=== PATIENT | male | born 1985 | race Caucasian/White ===

== ENCOUNTER 2024-08-21 20:46 | Inpatient (IN) | payer OTHER, SELFPAY ==
[2024-08-21 17:21] VITALS: BP 139/96
--- NOTE | 2024-08-21 18:27 | ED.GENMED ---
History of Present Illness
General
Chief Complaint: Alcohol Problem
Source: patient and family (Mother and father)
Exam Limitations: none
Time Seen by Provider: 08/21/24 17:32
Nursing documentation reviewed up to this point in time: agreed with
History of Present Illness
History of Present Illness:
39-year-old male with past medical history of alcohol abuse presents to the ER seeking alcohol detox/treatment. Patient says that he has been heavily drinking for the past 4 years. He says that his drinking has become heavier over the past week
due to the unfortunate passing of his . He says that her is in 2 days and he is seeking to detox from alcohol so that he can be sober for the . He reports that he drinks about a handle of liquor a day. He said he had about 1/5
of liquor today and his last drink was few hours ago. He says that he is having headaches, nausea with occasional vomiting. He is having myalgias. He says he feels very fatigued and washed out. He says he had success with rehab about a year and
a half ago but unfortunately relapsed; he denies any history of DTs although he does believe he may have had a seizure once in the past from alcohol withdrawal. He denies any drug use.
Review of Systems
Review of Systems
All Other Systems: ROS reviewed and negative except as documented in HPI and ROS
Constitutional: Reports fatigue; Denies fever
Respiratory: Denies trouble breathing
Cardiac: Denies chest pain
ABD/GI: Reports nausea and vomiting; Denies abdominal pain
: Denies flank pain
Musculoskeletal: Reports muscle pain; Denies neck pain or back pain
Neurological: Reports headache; Denies dizzy
Psychiatric: Reports depression; Denies suicidal
Phy Exam
Physical Exam
Physical Exam:
General: Awake, alert, oriented x3; tearful/anxious but in no acute distress
Head: Normocephalic, atraumatic
Eyes: Conjunctiva normal, sclera anicteric, pupils equal round reactive to light bilaterally
Throat: Airway intact, handling secretions
Neck: Trachea midline, supple without meningismus
Lungs: Clear to auscultation bilaterally, no wheezing, rales, rhonchi
Heart: Tachycardia with regular rhythm, no murmurs, gallops, or rubs
Abd: Soft, non distended, nontender
Neuro: No gross deficits, mild tremor
Skin: Warm and dry, no piloerection, no rash
Extremities: No edema in extremities, equal pulses in all extremities
Scores
Heart Failure Risk
Heart Failure Risk Score: Not Applicable
Heart Score for Chest Pain Patients
STEMI patient?: Not applicable
Withdrawal Assessment of Alcohol
Withdrawal Assessment Completed?: Yes
Nausea and Vomiting: Mild nausea with no vomiting
Tactile Disturbances: None
Tremor: Not visible, but can be felt fingertip to fingertip
Auditory Disturbances: Not present
Paroxysmal Sweats: No sweat visible
Visual Disturbances: Not present
Anxiety: Moderately anxious, or guarded, so anxiety is inferred
Headache, Fullness in Head: Mild
Agitation: Moderately fidgety and restless
Orientation and clouding of sensorium: Oriented and can do serial additions
Total CIWA Score: 12
Alcohol Withdrawal Medication Recommendation: Equal to MSAS Score 5-7. Lorazepam 1mg IV or PO NOW & re-assess q2hrs
Course
Orders/Labs/Results
Orders:
Orders
08/21/24 17:24
EKG [Electrocardiogram (*1)] Urgent
Reason for Study: Tachycardia
EKG- Treatment ONCE
08/21/24 18:24
0.9% Sodium Chloride 1000 ml [Nss] 1,000 ml IV BOLUS
Ketorolac [Toradol] 15 mg IV NOW STA
Lorazepam [Ativan] 0.5 mg IV NOW STA
Ondansetron Injectable [Zofran] 4 mg IV NOW STA
Thiamine Injection 100 mg IV NOW STA
08/21/24 18:42
Acetaminophen Urgent
Alcohol Urgent
CPK [Creatine Phosphokinase] Urgent
Complete Blood Count/With Diff Urgent
Comprehensive Metabolic Panel Urgent
Lipase Urgent
Salicylate Urgent
08/21/24 19:00
FOLic ACID [Folvite] 1 mg 0.9% Sodium Chloride 50 ml [Nss] 50 ml IV ONCE
08/21/24 19:04
Drug Screen, Urine [Urine Drug Abuse Screen] Urgent
Date Specimen was Collected: 08/21/24
Time Specimen was Collected: 18:53
Abnormal Lab Results
08/21/24
18:42
WBC 3.8 L 10^3/uL
(4.8-10.8)
RBC 4.68 L 10^6/uL
(4.70-6.10)
MCH 32.9 H pg
(27.0-31.0)
Plt Count 92 L 10^3/uL
(130-400)
Absolute Lymphs (auto) 0.6 L 10^3/uL
(1.2-3.4)
Lymphocytes % 16.5 L %
(20.5-51.1)
Creatinine 0.6 L mg/dL
(0.7-1.3)
Glucose 142 H mg/dl
(70-99)
AST 790 H* U/L
(17-59)
ALT 434 H U/L
(0-50)
Lipase 565 H U/L
(23-300)
Salicylates < 1.0 L mg/dl
(2.0-20.0)
Acetaminophen < 10 L ug/ml
(10-30)
08/21/24 18:42
08/21/24 18:42
Vital Signs
Initial and Last Documented VS:
Initial Vital Signs
Temp Pulse Resp BP Pulse Ox
36.6 C 130 17 139/96 96
08/21/24 17:21 08/21/24 17:21 08/21/24 17:21 08/21/24 17:21 08/21/24 17:21
Last Documented Vital Signs
Temp Pulse Resp BP Pulse Ox
36.6 C 112 10 123/83 93
08/21/24 17:21 08/21/24 19:15 08/21/24 19:11 08/21/24 18:31 08/21/24 18:33
MDM/Problems Addressed
Differential Diagnosis Includes:
Alcohol withdrawal
MDM/Problems Addressed:
39-year-old male who presents to the emergency room seeking alcohol treatment as described above. He is starting to have some early withdrawal symptoms he says. Last drink was a few hours ago. He is tachycardic, mildly hypertensive. Physical
exam as above. Will plan to place an IV send basic screening labs and drug screen. Will provide fluids, thiamine/folate, Zofran, Toradol for myalgias. Will treat with Ativan. Will discuss with our [facility] team for assessment.
[facility] performed assessment, patient is willing to do rehab but does not want to go directly rehab from the ER today because of his 's on Thursday which he needs to attend.
Labs reviewed�CBC shows thrombocytopenia likely from chronic alcohol use. CMP shows transaminitis with AST greater than ALT consistent with alcohol use. Lipase marginal 565. Tylenol and salicylate levels negative. His alcohol level was 341. UDS
negative. Patient feeling better after medications as above. Given that he was already showing signs of alcohol withdrawal with level of 341 and that he plans to try and go sober to his 's on Thursday I do think he should be admitted
for continued monitoring of alcohol withdrawal. He is comfortable with this plan. Case discussed with hospitalist.
Chronic conditions affecting care:
Alcohol use
Acute Exacerbation and/or Progression of Chronic Illness:
Acutely hypertensive likely related to alcohol withdrawal�will treat withdrawal
Acute Exacerbation and/or Progression of Chronic Illness: HTN
*Pulse Oximetry
Patient hypoxic: no
*EKG
Interpreted by ED Provider?: Yes
Heart Rate: 121
Rate: tachycardiac
Rhythm: sinus tachycardia
[place]: left axis deviation
Interval: normal interval
QRS Pattern: left vent hypertrophy
Ischemia: no ischemia
*Critical Care Note
Total Time (30-74mins, 75-104mins- exclusive of procedures): Not Applicable
Data Reviewed
Source: patient and family (Parents)
Patient Management
Discussion with other providers: Hospitalist (Discussed with hospitalist) and Other (Discussed with [facility])
Escalation/DeEscalation of care consider admission/obs:
Admission indicated
ED Attending Note
-
Portions of this chart may have been created with voice recognition software.� Occasional wrong word or��sound alike� substitutions may have occurred due to the inherent limitations of voice recognition software.
Discharge Plan
Departure
Patient Disposition: Admit
Date of Disposition: 08/21/24
Time of Disposition: 19:47
Admit to doctor: Josh
Presentation/result/management discussed w/ accepting MD/DO: Hospitalist
Discharge Problem:
Alcohol withdrawal
Prescriptions:
No Action
No Current Medications
0
Referrals:
Damon Aly DO [Family Provider, Family Practice]
Interventions
Interventions:
*Risk Screen - Suicide Last Done: 08/21/24 17:23
*General Assessment Last Done: 08/21/24 17:23
*Neglect/Abuse Screening Last Done: 08/21/24 17:23
*ED- Fall Risk Assessment Last Done: 08/21/24 19:41
*ED COVID-19 Vaccine History Last Done: 08/21/24 17:23
ED- Neurological Assessment Last Done: 08/21/24 19:44
ED-Psychological Assessment Last Done: 08/21/24 18:33
Discharge Date and Time
Print Language: LATVIAN
[2024-08-21 18:28] VITALS: BMI 29.9
[2024-08-21 18:31] VITALS: BP 123/83
[2024-08-21] MEDS: NSS 1000 IV ×2 (18:40→22:26)
[2024-08-21] MEDS: THIAMINE INJECTION 100 MG IV (18:54)
[2024-08-21] MEDS: ZOFRAN 4 MG IV (18:54)
[2024-08-21] MEDS: ATIVAN 0.5 MG IV ×2 (18:54→20:50)
[2024-08-21] MEDS: TORADOL 15 MG IV (18:55)
[2024-08-21 19:00] LABS: % Basophils 1.1 % (0-2); % Eosinophils 1.1 % (0-6); % Immature Granulocytes 0.3 % (0-0.5); % Lymphocytes 16.5 % (20.5-51.1); % Monocytes 9.3 % (1.7-9.3); % Neutrophils 71.7 % (42.2-75.2); Absolute Lymphocytes 0.6 10^3/uL (1.2-3.4); Absolute Monocytes 0.4 10^3/uL (0.1-0.6); Absolute Neutrophils 2.7 10^3/uL (1.4-6.5); Hematocrit 43.1 % (39.0-52.0); Hemoglobin 15.4 g/dL (13.0-18.0); Mean Corp Hgb Conc. 35.7 g/dL (33.0-37.0); Mean Corpuscular Hgb 32.9 pg (27.0-31.0); Mean Corpuscular Volume 92.1 fL (80.0-94.0); Nucleated Red Blood Cells % 0 % (-); Red Blood Cell Count 4.68 10^6/uL (4.70-6.10); Red Cell Dist. Width 13.2 % (11.5-14.5); White Blood Cell Count 3.8 10^3/uL (4.8-10.8)
[2024-08-21 19:28] LABS: Mean Platelet Volume 8.9 fL (7.4-10.4); Platelet Count 92 10^3/uL (130-400)
[2024-08-21 19:29] LABS: Amphetamines Negative (Negative); Barbiturates Negative (Negative); Benzodiazepines Negative (Negative); Buprenorphine Negative (Negative); Cocaine Negative (Negative); Marijuana Negative (Negative); Methadone Negative (Negative); Methamphetamines Negative (Negative); Opiates Negative (Negative); Phencyclidine Negative (Negative); Tricyclic Antidepressants Negative (Negative)
[2024-08-21] MEDS: FOLVITE 50.2 MG IV (19:34)
[2024-08-21 19:35] LABS: ALT (SGPT) 434 U/L (0-50); AST (SGOT) 790 U/L (17-59); Acetaminophen < 10 ug/ml (10-30); Albumin 4.9 g/dl (3.5-5.0); Alcohol 341 mg/dl; Alkaline Phosphatase 64 U/L (38-126); Blood Urea Nitrogen 12 mg/dl (9-20); Calcium 8.7 mg/dl (8.4-10.2); Carbon Dioxide 27 mmol/L (22-30); Chloride 105 mmol/L (98-107); Creatine Phosphokinase 79 U/L (55-170); Estimated Creatinine Clearance > 125 ml/min; Glucose 142 mg/dl (70-99); Lipase 565 U/L (23-300); Potassium 3.9 mmol/L (3.5-5.1); Salicylate < 1.0 mg/dl (2.0-20.0); Sodium 141 mmol/L (135-145); Total Bilirubin 0.8 mg/dl (0.2-1.3); Total Protein 7.4 g/dl (6.3-8.2); eGFR > 60.00
--- NOTE | 2024-08-21 20:15 | HPS.HSE ---
Family Physician
-
Family Physician: Damon Aly
Chief Complaint
-
alcohol withdrawal
History of Present Illness
39-year-old male past medical history of alcohol use disorder, prior alcohol-related seizure presenting to seek alcohol detoxification. He has been drinking heavily for the past 4 years. He has been drinking even more over the past week due to the
unfortunate passing of his . is in 2 days and he is seeking to detox from alcohol so that he can be sober for the . He drinks a handle of liquor a day. He had 1/5 today and his last drink was a few hours ago. He is having
headaches, nausea with occasional vomiting. He is having muscle cramping. He feels fatigued. He had successful with rehab a year and a half ago but unfortunately relapsed. He denies delirium tremens although he does believe he may have had a
seizure once in the past from alcohol withdrawal. He denies any other drugs.
He has some pain in his lower back, chills, nausea and vomiting over the past few days. Denies chest pain or shortness of breath. Denies abdominal pain.
Medical History
Past Medical History
Past Medical History: Reports Other ( alcohol use disorder, prior alcohol-related seizure)
Past Surgical History: Reports Other (Appendectomy, wisdom teeth surgery)
Social History
Tobacco: Non-smoker
Alcohol: Daily
Drug: None
Family History
Family History: Not pertinent
Allergies / Home Medications
Allergies reflects when Allergies were last updated in [employer].
Home Medications with original date entered in [employer]
Allergy/Medication List:
Allergies
Allergy/AdvReac Type Severity Reaction Status Date / Time
No Known Allergies Allergy Unverified 08/21/24 17:22
Home Medications
No Meds [No Current Medications] 08/21/24
Review of Systems
-
History Source: Patient
A 12 point ROS was completed and negative except as noted: Yes
Constitutional: Reports No Symptoms
EENT: Reports No Symptoms
Respiratory: Reports No Symptoms
Cardiac: Reports No Symptoms
Abdomen/GI: Reports No Symptoms
: Reports No Symptoms
Musculoskeletal: Reports No Symptoms
Skin: Reports No Symptoms
Neurological: Reports No Symptoms
Endocrine: Reports No Symptoms
Hematologic/Lymphatic: Reports No Symptoms
Psych: Reports No Symptoms
Physical Exam
Vital Signs
Vital Signs
Temp Pulse Resp BP Pulse Ox
97.9 F 112 10 123/83 93
08/21/24 17:21 08/21/24 19:15 08/21/24 19:11 08/21/24 18:31 08/21/24 18:33
Physical Exam
General: Well Developed, Well Nourished and No Apparent Distress
HEENT: NormoCephalic, Moist mucous membranes and Atraumatic
Respiratory: Clear
Cardiac: S1/S2 and Regular Rhythm; No Murmur or Rub
GI: Soft, Non Tender, Non Distended and Normal Bowel Sounds; No Organomegaly
Rectal: Deferred by Provider
Musculoskeletal: No Clubbing, No Cyanosis and No Edema
Skin: No Rash
Neuro: Nonfocal/grossly intact
Laboratory Results
-
08/21/24 18:42
08/21/24 18:42
Laboratory Results
Total Bilirubin 0.8 mg/dl (0.2-1.3) 08/21/24 18:42
AST 790 U/L (17-59) H* 08/21/24 18:42
ALT 434 U/L (0-50) H 08/21/24 18:42
Alkaline Phosphatase 64 U/L (38-126) 08/21/24 18:42
Lipase 565 U/L (23-300) H 08/21/24 18:42
Data Reviewed
-
Lab Data: Labs Reviewed by me
Old Records: Reviewed
Impression/Plan
-
IMPRESSION:
PLAN:
# Alcohol withdrawal
# Prior history of alcohol-related seizure
-Alcohol level 341
-UDS, Tylenol and salicylates negative
- Alcohol withdrawal protocol
- Phenobarbital protocol
- Thiamine and folate
- IV fluids
# Transaminitis secondary to alcohol
- Continue to monitor
# Thrombocytopenia/leukopenia secondary to alcohol use
- Continue to monitor
Full code
DVT prophylaxis�heparin
Regular diet
[2024-08-21 20:32] VITALS: BP 126/72
--- NOTE | 2024-08-21 21:00 | EDRN ---
Pt complained of feeling his heart race and veins pounding in his head. Pt said 'I just don't feel well.' HR 110's. Pt medicated with 0.5mg ativan iv as ordered by Dr Mccray. Pt said he is feeling better now.
--- NOTE | 2024-08-21 22:15 | PTCARENOTE ---
Patient arrived from ED via stretcher. Patient aaox3, able to make needs known. IV flushed and patent.
[2024-08-21] MEDS: PHENOBARBITAL 104 MG IV (22:44)
[2024-08-21 23:10] VITALS: BP 132/88
[2024-08-22] MEDS: ATIVAN 1 MG PO ×6 (00:14→13:01)
[2024-08-22 03:08] VITALS: BP 120/85
[2024-08-22 06:00] VITALS: BMI 29.6
[2024-08-22 07:00] VITALS: BP 115/84
[2024-08-22 07:26] LABS: % Basophils 1.2 % (0-2); % Eosinophils 0.8 % (0-6); % Immature Granulocytes 0.4 % (0-0.5); % Lymphocytes 18.4 % (20.5-51.1); % Monocytes 5.9 % (1.7-9.3); % Neutrophils 73.3 % (42.2-75.2); Absolute Lymphocytes 0.5 10^3/uL (1.2-3.4); Absolute Monocytes 0.2 10^3/uL (0.1-0.6); Absolute Neutrophils 1.9 10^3/uL (1.4-6.5); Hematocrit 41.4 % (39.0-52.0); Hemoglobin 14.7 g/dL (13.0-18.0); Mean Corp Hgb Conc. 35.5 g/dL (33.0-37.0); Mean Platelet Volume 9.4 fL (7.4-10.4); Nucleated Red Blood Cells % 0 % (-); Platelet Count 61 10^3/uL (130-400); Red Blood Cell Count 4.45 10^6/uL (4.70-6.10); Red Cell Dist. Width 13.2 % (11.5-14.5); White Blood Cell Count 2.6 10^3/uL (4.8-10.8)
[2024-08-22] MEDS: HEPARIN 5000 UNITS SC (07:57)
[2024-08-22] MEDS: VITAMIN B1 100 MG PO (07:57)
[2024-08-22] MEDS: PHENOBARBITAL 97.5 MG IV (07:59)
[2024-08-22] MEDS: FOLVITE 1 MG PO (07:59)
[2024-08-22 08:26] LABS: ALT (SGPT) 419 U/L (0-50); AST (SGOT) 663 U/L (17-59); Albumin 4.5 g/dl (3.5-5.0); Alkaline Phosphatase 63 U/L (38-126); Blood Urea Nitrogen 10 mg/dl (9-20); Calcium 8.9 mg/dl (8.4-10.2); Carbon Dioxide 30 mmol/L (22-30); Chloride 104 mmol/L (98-107); Estimated Creatinine Clearance > 125 ml/min; Glucose 90 mg/dl (70-99); Potassium 3.7 mmol/L (3.5-5.1); Sodium 138 mmol/L (135-145); Total Bilirubin 1.8 mg/dl (0.2-1.3); Total Protein 6.9 g/dl (6.3-8.2); eGFR > 60.00
[2024-08-22] MEDS: PROTONIX 40 MG PO (10:37)
--- NOTE | 2024-08-22 10:58 | CM ---
Addendum entered by Betty Stoner 08/22/24 12:34:
Spoke w/ Marcus/[facility] who stated colleague, Sangita, met w/ patient in ED. Patient is interested in IP rehab, however, would like to wait until after his 's service. Information was provided for patient to call to initiate IP admission.
[facility] will follow up
Per hospitalist, patient will leave AMA
Original Note:
Patient seen bedside, initial assessment completed. Patient is a 39-year-old male past medical history of alcohol use disorder, prior alcohol-related seizure presenting to seek alcohol detoxification. He has been drinking heavily for the past 4
years. He has been drinking even more over the past week due to the unfortunate passing of his .
Patient resides w/ mother and his 3 children in a 2STH, no steps. Independent in all areas, no DME. No PT hx. Inpatient D&A rehab last year per chart.
Address, point of contact and insurance verified
PCP: Damon Aly
Pharmacy: [facility]
Patient stated his passed recently and her is tomorrow so he will need to be discharged today by 1 pm or he will have to leave AMA.
CM consulted for substance abuse counseling. Discussed w/ patient who stated that [facility] did reach out to him regarding IP or OP treatment, he stated that he is unsure at this time but will revisit this after his 's .
TT hospitalist regarding patient's need to d/c today
Plan: Home, no needs
[2024-08-22 11:00] VITALS: BP 132/80
[2024-08-22 11:38] LABS: Lipase 399 U/L (23-300); Magnesium 1.5 mg/dl (1.6-2.3); Phosphorus 3.3 mg/dl (2.5-4.5)
--- NOTE | 2024-08-22 12:12 | W.PN.HOSP.TC ---
Today's Communication/Plan
-
Replace magnesium
Switch phenobarbital to Librium
Watch for any withdrawal signs
Ultrasound of the abdomen if patient agrees
Assessment / Plan
Assessment / Plan
39-year-old male with history of alcohol use. Drinks a handle of liquor daily. His recently passed and her is tomorrow. Patient wants to leave to make arrangements and to attend that.
Mild tremors
AAO3
Cardiovascular system is most appreciated
Chest clear to auscultation-abdomen soft and nontender
Neuroexam is nonfocal
# Alcohol use disorder
Alcohol withdrawal
Prior seizures from alcohol
Current alcohol level on admission was 341
Discontinue phenobarbital protocol and start Librium. In case patient wants to stop alcohol and continue with outpatient treatment we can give him a tapering dose of Librium .
Supplement thiamine and folic acid
MSAS protocol with Benzos as needed
# Abnormal LFTs
Likely alcohol induced hepatitis-GI evaluation requested
Check ultrasound of the abdomen if pt agrees and hepatitis panel
# Hypomagnesemia-replace
# Leukopenia and thrombocytopenia-secondary to alcohol use-follow
# DVT prophylaxis-subcutaneous heparin
# Full code
Patient stated that he wants to leave AGAINST MEDICAL ADVICE to attend his 's and to make arrangements today. He stated that he is not planning to drink again. We discussed about liver test abnormalities and the need to stay to get
treatment for that. He is aware that this could go into liver failure. Also discussed about alcohol withdrawal symptoms can be even life-threatening. He requested medicines to help him with withdrawal symptoms . I also made him aware that if he
mixes alcohol with the medicines which are prescribed this can be fatal. He verbalized understanding. Patient wants to think and let me know. If he is leaving AGAINST MEDICAL ADVICE and he really wants to quit alcohol use and admits he will not
resume drinking then I will give him a prescription for Librium. He is also talking to a rehab to check in tomorrow after the . He is aware that he can come back to the hospital if he changed his mind and we will take care of him. I tried
my best to convince him to stay to get further work up and treatment.
Discussed with nursing.
Discussed with rn social services who is checking with [facility] to see if they are aware about the referral and communicating with the patient to set up rehab
Part of this note was created using voice recognition system. Occasional wrong word or��sound alike� substitutions may have inadvertently occurred due to the inherent limitations of voice recognition software. If noted kindly bring it to my
attention for correction.
Time more than 50 min
Anticipated Discharge: > 48 hours
Subjective/Interval History
-
Date of Service: August 22, 2024
Objective Data
-
Labs:
Laboratory Results
08/22/24
06:49
WBC 2.6 L
Hgb 14.7
Hct 41.4
Plt Count 61 L D
Sodium 138
Potassium 3.7
Chloride 104
Carbon Dioxide 30
BUN 10
Creatinine 0.5 L
Glucose 90
Calcium 8.9
Total Bilirubin 1.8 H D
AST 663 H*
ALT 419 H
Alkaline Phosphatase 63
Vital Signs:
Vital Signs
Temp Pulse Resp BP Pulse Ox
98.0 F 107 18 132/80 94
08/22/24 11:00 08/22/24 11:00 08/22/24 11:00 08/22/24 11:00 08/22/24 11:00
I&O
08/21/24 08/22/24 08/23/24
06:59 06:59 06:59
Output Total 400 / 400
Balance -400 / -400
[2024-08-22] MEDS: LIBRIUM 50 MG PO (12:42)
[2024-08-22] MEDS: MAGNESIUM SULFATE 50 IV (12:45)
--- NOTE | 2024-08-22 12:56 | W.PN.UPDATE ---
Update Note
Progress Note Update
Discussed with patient about GI consult. He would like to defer. He signed AMA papers and will be leaving secondary to passing away. Asked patient to follow up with PCP (Dr. Damon Aly, call today) and discuss and follow up. Patient can be
given our information.
[2024-08-22 15:00] VITALS: BP 147/102
--- NOTE | 2024-08-22 15:31 | W.PN.UPDATE ---
Addendum entered and electronically signed by Cassi Issa MD 08/22/24 17:48:
Dictation-[id number]
Original Note:
Update Note
Progress Note Update
Patient states that he will not use any more alcohol and wants to leave AMA.
He is requesting medicines to keep away from getting withdrawal symptoms.
He is aware that he can come back if he has symptoms.
He is also aware that if he takes this with alcohol it can be even fatal.
Discussed about liver function tests.
He will follow-up with his PCP Damon Aly
I called PCP office he has not been seen since 2021. I requested them to call him to schedule an appointment to be seen.
Time spent more than 30 minutes
--- NOTE | 2024-08-22 15:46 | PTCARENOTE ---
Pt left AMA at this time. MSAS 4-5. IV and TELE removed.
[2024-08-22 18:40] LABS: Hepatitis B Surface Antigen Negative (Negative)
[2024-08-22 18:56] LABS: Hepatitis A Antibody, Total Negative (Negative); Hepatitis B Core Ab, Total Negative (Negative); Hepatitis B Surface Antibody Negative; Hepatitis C Antibody Negative (Negative)
== END 2024-08-22 15:58 | disposition left against medical advice (07) | DRG 894 ==
LOC: 4 WEST ACU 20:46
PROVIDERS: ADMITTING PHYSICIAN Hospitalist; ATTENDING PHYSICIAN Hospitalist; EMERGENCY PHYSICIAN Emergency Medicine; FAMILY PHYSICIAN Family Medicine
DX: F10.139 Alcohol abuse with withdrawal, unspecified (principal); D69.59 Other secondary thrombocytopenia; D72.819 Decreased white blood cell count, unspecified; E83.42 Hypomagnesemia; Z63.4 Disappearance and death of family member
CPT/HCPCS: 80053; 80143; 80179; 80306; 82077; 82550; 83690; 83735; 84100; 85025; 86704; 86706; 86708; 86803; 87340; 93005; 96361; 96374; 96375; 99285

== ENCOUNTER 2024-09-29 19:58 | Emergency (ER) | payer OTHER, SELFPAY ==
[2024-09-29 20:00] VITALS: BP 154/104
[2024-09-29 20:29] LABS: Hematocrit 46.7 % (39.0-52.0); Hemoglobin 17.4 g/dL (13.0-18.0); Mean Corp Hgb Conc. 37.3 g/dL (33.0-37.0); Mean Corpuscular Volume 87.3 fL (80.0-94.0); Nucleated Red Blood Cells % 0 % (-); Platelet Count 227 10^3/uL (130-400); Red Cell Dist. Width 11.7 % (11.5-14.5)
[2024-09-29 20:45] LABS: ALT (SGPT) 195 U/L (0-50); AST (SGOT) 256 U/L (17-59); Albumin 5.3 g/dl (3.5-5.0); Alkaline Phosphatase 60 U/L (38-126); Blood Urea Nitrogen 9 mg/dl (9-20); Calcium 8.8 mg/dl (8.4-10.2); Carbon Dioxide 15 mmol/L (22-30); Chloride 106 mmol/L (98-107); Glucose 148 mg/dl (70-99); Potassium 4.3 mmol/L (3.5-5.1); Sodium 142 mmol/L (135-145); Total Protein 7.9 g/dl (6.3-8.2); eGFR > 60.00
[2024-09-29 20:47] LABS: Lipase 185 U/L (23-300)
[2024-09-29 21:03] VITALS: BP 136/95
[2024-09-29 21:29] VITALS: BP 135/101
[2024-09-29 22:00] VITALS: BP 143/100
--- NOTE | 2024-09-29 22:30 | ED.GENMED ---
History of Present Illness
General
Chief Complaint: Alcohol Problem
Source: patient
Time Seen by Provider: 09/29/24 21:07
History of Present Illness
History of Present Illness:
This patient is a very pleasant 39-year-old male with a history of alcohol use disorder who states that he drank as recently as today, typically typically drinks up to a gallon of whiskey a day. He is requesting assistance with recovery. He
worries that he may develop a seizure as he had many years ago developed an alcohol withdrawal seizure. He feels a little Trembley and nauseous but denies vomiting, chest pain, shortness of breath, abdominal pain, diaphoresis, or other complaints.
Past History
Past History
ED Past Medical History: None
Social History
Tobacco: Smoker
Alcohol: Chronic alcoholic
Drug: Marijuana
Personal:
Living: with family
Phy Exam
Physical Exam
Physical Exam:
GENERAL: Alert , in no apparent distress
EYE: pupils equal and reactive
NECK: Supple, no significant adenopathy.
ENT: o/p clr, mmm.
CARDIAC: Regular rate and rhythm .
LUNGS: Clear breath sounds bilaterally, no acute respiratory distress, no wheezes/rales/rhonchi
ABDOMEN: Soft, without focal tenderness, no r/g, no cvat
NEUROLOGICAL: Alert and oriented, no focal neuro deficits
SKIN: Warm and dry, skin intact.
MUSCULOSKELETAL: No edema, well perfused.
PSYCH: Appears anxious but cooperative
Scores
Withdrawal Assessment of Alcohol
Withdrawal Assessment Completed?: Not applicable
Course
Orders/Labs/Results
Orders:
Orders
09/29/24 20:17
Alcohol Urgent
Complete Blood Count/With Diff Urgent
Comprehensive Metabolic Panel Urgent
Lipase Urgent
09/29/24 22:29
Lorazepam [Ativan] 0.5 mg IV NOW STA
Ondansetron Orally Disint [Zofran Odt (Orally Disintegrating)] 4 mg PO NOW STA
Abnormal Lab Results
09/29/24
20:17
MCH 32.5 H pg
(27.0-31.0)
MCHC 37.3 H g/dL
(33.0-37.0)
Carbon Dioxide 15 L mmol/L
(22-30)
Glucose 148 H mg/dl
(70-99)
AST 256 H U/L
(17-59)
ALT 195 H U/L
(0-50)
Albumin 5.3 H g/dl
(3.5-5.0)
Alcohol, Quantitative 438 H* mg/dl
09/29/24 20:17
09/29/24 20:17
Vital Signs
Initial and Last Documented VS:
Initial Vital Signs
Temp Pulse Resp BP Pulse Ox
99.0 F 130 20 154/104 96
09/29/24 20:00 09/29/24 20:00 09/29/24 20:00 09/29/24 20:00 09/29/24 20:00
Last Documented Vital Signs
Temp Pulse Resp BP Pulse Ox
98.8 F 115 23 143/100 97
09/29/24 21:03 09/29/24 21:32 09/29/24 21:54 09/29/24 22:00 09/29/24 22:34
*Pulse Oximetry
SaO2: 97
Oxygen Mode of Delivery: Room air
Patient hypoxic: no
*Critical Care Note
Total Time (30-74mins, 75-104mins- exclusive of procedures): Not Applicable
Update Note
Update Note:
Patient presents to the Emergency Department with __alcohol use disorder
Number and Complexity of Problems Addressed at the Encounter
� Chronic conditions affecting care:
� Acute Exacerbation and/or Progression of Chronic Illness:
� Differential Diagnosis includes: But not limited to impending withdrawal, depression, alcohol intoxication, etc. etc.
Amount and/or Complexity of Data to be Reviewed and Analyzed
� I performed an independent evaluation of and my interpretation is:
EKG:
CT:
Xrays:
Laboratory Studies: Alcohol level elevated at 438. Minor LFT abnormalities.
Other:
� Review of other/old records reveals:
� Clinical information was obtained by an independent historian:
� Prescriptions/Medications Considered but not given:
� Further testing considered but not performed:
Risk of Complications and/or Morbidity or Mortality of Patient Management
� Social determinants of health affecting care:
� Discussion with other providers (PCP, Hospitalists, Consultants, etc):
� Escalation of care including admission/observation vs risk of discharge considered: Patient seen by [facility] who spoke with patient extensively and arrange for direct acceptance at [facility]. Patient will go there via [employer]
and is agreeable to the plan. Medically stable at this time, do not clinically suspect he is at risk for imminent seizure in the interim.
ED Attending Note
-
Portions of this chart may have been created with voice recognition software.� Occasional wrong word or��sound alike� substitutions may have occurred due to the inherent limitations of voice recognition software.
Discharge Plan
Departure
Patient Disposition: Acute Rehab Facility
Date of Disposition: 09/29/24
Time of Disposition: 23:02
Discharge Problem:
Alcohol use disorder
Instructions: Alcohol Use Disorder (DC), BLOOD PRESSURE
Prescriptions:
No Action
chlordiazepoxide HCl 25 mg capsule
See Rx Instructions .ROUTE .COMPLEX Qty: 17 0RF
Rx Instructions:
50 mg orally Q6H X 3 doses Day 1, 50 Mg Q8H X 3 doses Day 2, 50 mg Q12H X 2 doses Day 3, 50 Mg at night Day 4
Referrals:
Damon Aly DO [Family Provider, Family Practice]
Activity Restrictions/Additional Instructions:
PLEASE PROCEED DIRECTLY TO THE REHABILITATION FACILITY.
Interventions
Interventions:
*Risk Screen - Suicide Last Done: 09/29/24 20:00
*General Assessment Last Done: 09/29/24 20:00
*Neglect/Abuse Screening Last Done: 09/29/24 20:00
*ED- Fall Risk Assessment Last Done: 09/29/24 20:00
*ED COVID-19 Vaccine History Last Done: 09/29/24 20:00
*Nursing Disposition Last Done: 09/29/24 23:32
ED- Neurological Assessment Last Done: 09/29/24 21:03
ED-Psychological Assessment Last Done: 09/29/24 21:03
Discharge Date and Time
Discharge Date/Time: 09/29/24 23:32
Print Language: GRENADIAN
[2024-09-29] MEDS: ZOFRAN ODT (ORALLY DISINTEGRATING) 4 MG PO (22:39)
[2024-09-29] MEDS: ATIVAN 0.5 MG IV (22:39)
== END 2024-09-29 23:32 ==
LOC: EMR 19:58
PROVIDERS: Emergency Medicine; EMERGENCY PHYSICIAN Emergency Medicine; FAMILY PHYSICIAN Family Medicine
DX: F10.20 Alcohol dependence, uncomplicated (principal); Y90.8 Blood alcohol level of 240 mg/100 ml or more; F17.200 Nicotine dependence, unspecified, uncomplicated
CPT/HCPCS: 99285; 80053; 82077; 83690; 85025